=== PATIENT | female | born 1980 | race Caucasian/White ===

== ENCOUNTER 2016-08-07 09:35 | Emergency (ER) | payer MEDICAID ==
[~2016-08-07] VITALS: Ht 160 cm; Wt 69.8 kg
[2016-08-07 12:08] VITALS: BP 121/62
== END 2016-08-07 12:08 | disposition home or self-care (01) ==
LOC: ED 09:35
DX: J45.909 Unspecified asthma, uncomplicated (principal); R51 Headache; Z88.0 Allergy status to penicillin
CPT/HCPCS: J2930; J7613; J7644

== ENCOUNTER 2017-08-08 23:19 | Emergency (ER) | payer MEDICAID ==
[~2017-08-08] VITALS: Ht 160 cm; Wt 66.2 kg
[2017-08-08 23:31] VITALS: Ht 160 cm; Wt 66.2 kg
[2017-08-09 00:52] VITALS: BP 105/72
== END 2017-08-09 00:52 | disposition home or self-care (01) ==
LOC: ED 23:19
DX: R06.00 Dyspnea, unspecified (principal); K21.0 Gastro-esophageal reflux disease with esophagitis; J45.909 Unspecified asthma, uncomplicated; Z88.0 Allergy status to penicillin
CPT/HCPCS: Q0092

== ENCOUNTER 2018-05-27 12:47 | Emergency (ER) | payer MEDICAID ==
[~2018-05-27] VITALS: Ht 160 cm; Wt 68.5 kg
[2018-05-27 13:07] VITALS: BP 110/69; Ht 160 cm; Wt 68.5 kg
== END 2018-05-27 15:09 | disposition home or self-care (01) ==
LOC: ED 12:47
DX: L03.317 Cellulitis of buttock (principal); J45.909 Unspecified asthma, uncomplicated; Z88.0 Allergy status to penicillin

== ENCOUNTER 2018-07-14 16:32 | Emergency (ER) | payer MEDICAID ==
[~2018-07-14] VITALS: Ht 160 cm; Wt 69.4 kg
[2018-07-14 16:58] VITALS: Ht 160 cm; Wt 69.4 kg
[2018-07-14 17:34] LABS: microscopic required? NO
[2018-07-14 18:01] LABS: BASOPHIL % 0.9 % (0-2); PLATELET COUNT 309 x10^3mcL (130-400); RED CELL DISTRIBUTION WIDTH 12.9 % (11.5-14.5)
[2018-07-14 18:08] LABS: CALCIUM 8.4 mg/dL (8.5-10.1); CARBON DIOXIDE 25.9 mmol/L (21-32); CHLORIDE SERUM 103 mmol/L (98-107); CREATININE SERUM 0.6 mg/dL (0.6-1.0); GFR1 > 60 mL/min; GLUCOSE SERUM 94 mg/dL (74-106); POTASSIUM SERUM 3.7 mmol/L (3.5-5.1); SODIUM SERUM 138 mmol/L (136-145)
[2018-07-14 18:12] LABS: ALBUMIN 3.6 g/dL (3.4-5.0); ALKALINE PHOSPHATASE 83 U/L (46-116); ALT/SGPT 23 U/L (14-59); AST/SGOT 17 U/L (15-37); BILIRUBIN TOTAL 0.4 mg/dL (0.20-1.00); LIPASE 161 IU/L (73-393); TOTAL PROTEIN, SERUM 7.3 g/dL (6.4-8.2)
[2018-07-14 18:47] LABS: UA SPECIFIC GRAVITY 1.025 (1.005-1.035); urine erythrocyte NEGATIVE (NEGATIVE)
[2018-07-14 19:18] VITALS: BP 117/72
== END 2018-07-14 19:18 | disposition home or self-care (01) ==
LOC: ED 16:32
PROVIDERS: Emergency Medicine
DX: R10.13 Epigastric pain (principal); R11.0 Nausea; J45.909 Unspecified asthma, uncomplicated; Z98.890 Other specified postprocedural states
CPT/HCPCS: 36415; J1885; Q0092

== ENCOUNTER 2018-08-03 00:38 | Emergency (ER) | payer MEDICAID ==
[~2018-08-03] VITALS: Ht 157.5 cm; Wt 69.9 kg
[2018-08-03 00:43] VITALS: Ht 157.5 cm; Wt 69.9 kg
[2018-08-03 01:38] VITALS: BP 127/75
== END 2018-08-03 01:38 | disposition home or self-care (01) ==
LOC: ED 00:38
DX: R07.0 Pain in throat (principal)

== ENCOUNTER 2019-02-16 21:35 | Emergency (ER) | payer MEDICAID ==
[~2019-02-16] VITALS: Ht 160 cm; Wt 67.1 kg
[2019-02-16 21:55] VITALS: Ht 160 cm; Wt 67.1 kg
[2019-02-16 23:16] VITALS: BP 96/55
== END 2019-02-16 23:16 | disposition home or self-care (01) ==
LOC: ED 21:35
DX: N39.0 Urinary tract infection, site not specified (principal); J45.909 Unspecified asthma, uncomplicated; Z88.0 Allergy status to penicillin

== ENCOUNTER 2019-03-02 07:47 | Emergency (ER) | payer MEDICAID ==
[~2019-03-02] VITALS: Ht 160 cm; Wt 66.3 kg
[2019-03-02 07:51] VITALS: BP 110/68
[2019-03-02 10:20] LABS: UA SPECIFIC GRAVITY 1.025 (1.005-1.035); microscopic required? YES; urine erythrocyte TRACE (NEGATIVE)
== END 2019-03-02 09:06 | disposition home or self-care (01) ==
LOC: ED 07:47
PROVIDERS: Emergency Medicine
DX: N39.0 Urinary tract infection, site not specified (principal); J45.909 Unspecified asthma, uncomplicated; Z88.0 Allergy status to penicillin

== ENCOUNTER 2019-11-12 14:47 | Emergency (ER) | payer MEDICAID, SELFPAY ==
[~2019-11-12] VITALS: Ht 160 cm; Wt 68.5 kg
[2019-11-12 15:24] VITALS: Ht 160 cm; Wt 68.5 kg
[2019-11-12 17:12] VITALS: BP 109/58
== END 2019-11-12 17:12 | disposition home or self-care (01) ==
LOC: ED 14:47
DX: U07.1 COVID-19 (principal); J45.909 Unspecified asthma, uncomplicated; Z88.0 Allergy status to penicillin
CPT/HCPCS: Q0092; U0003-CS

== ENCOUNTER 2020-02-05 12:42 | Emergency (ER) | payer MEDICAID ==
[~2020-02-05] VITALS: Ht 160 cm; Wt 68.9 kg
[2020-02-05 13:58] VITALS: BP 105/65
== END 2020-02-05 13:58 | disposition home or self-care (01) ==
LOC: ED 12:42
DX: N39.0 Urinary tract infection, site not specified (principal); N11.1 Chronic obstructive pyelonephritis; J45.909 Unspecified asthma, uncomplicated; Z88.0 Allergy status to penicillin

== ENCOUNTER 2020-02-22 13:19 | Emergency (ER) | payer MEDICAID ==
[~2020-02-22] VITALS: Ht 162.6 cm; Wt 69.4 kg
[2020-02-22 13:41] VITALS: BP 108/54; Ht 162.6 cm; Wt 69.4 kg
== END 2020-02-22 17:04 | disposition home or self-care (01) ==
LOC: ED 13:19
DX: N89.8 Other specified noninflammatory disorders of vagina (principal); J45.909 Unspecified asthma, uncomplicated; Z88.0 Allergy status to penicillin
CPT/HCPCS: J2001